=== PATIENT | male | born 1955 | race Caucasian/White ===

== ENCOUNTER → 2018-02-21 | Outpatient (CLI) | payer OTHER ==
[~2018-02-21] MED LIST: CARV25 PO; COLCHICINE0.6 MG PO; FURO40 PO; HYDR10 PO; HYDRA25 PO; HYDROCODON-ACE118 ML PO; INDO25 PO; Isosorbide Mono30 MG PO; K-Dur20 MEQ PO; LISI20 PO; METO50 PO; MULVITMIND PO; NAC600 MG PO; NYST237S MT; THEREMS H PO; THIA100 PO; Zofran8 MG PO
== END | disposition home or self-care (01) ==
LOC: PLD 07:21 → LAB SHORT 07:21
DX: C09.9 Malignant neoplasm of tonsil, unspecified (principal); C77.0 Secondary and unspecified malignant neoplasm of lymph nodes of head, face and neck; R59.0 Localized enlarged lymph nodes
CPT/HCPCS: 88173

== ENCOUNTER 2018-05-23 13:37 | Inpatient (IN) | payer OTHER ==
[~2018-05-23] VITALS: Ht 180.3 cm; Wt 83.9 kg
[2018-05-24] MEDS ORDERED: AMOX875 PO (13:51)
== END 2018-05-26 17:30 | disposition home or self-care (01) | DRG 824 ==
LOC: SURS 05-26 07:56 → PRE IP 05-26 09:30 → SURS 05-26 17:30
PROVIDERS: Otolaryngology
PROC: 07B10ZX Excision of Right Neck Lymphatic, Open Approach, Diagnostic (ICD-10-PCS; principal; 2018-05-26 09:30)
DX: C77.0 Secondary and unspecified malignant neoplasm of lymph nodes of head, face and neck (principal); I42.6 Alcoholic cardiomyopathy; C09.9 Malignant neoplasm of tonsil, unspecified; I10 Essential (primary) hypertension; F10.21 Alcohol dependence, in remission; Z92.21 Personal history of antineoplastic chemotherapy; Z93.1 Gastrostomy status; Z79.899 Other long term (current) drug therapy
CPT/HCPCS: 88305; J1100; J2250; J3010; J7120

== ENCOUNTER → 2018-09-14 | Outpatient (CLI) | payer OTHER ==
[~2018-09-14] MED LIST changes: +AMOX875 PO
== END | disposition home or self-care (01) ==
LOC: PLD 08:00 → LAB SHORT 08:00
DX: R59.0 Localized enlarged lymph nodes (principal)
CPT/HCPCS: 88173; 88305

== ENCOUNTER 2019-05-28 06:05 | Day surgery (SDC) | payer OTHER ==
[~2019-05-28] VITALS: Ht 177.8 cm; Wt 92.7 kg
[~2019-05-28 06:05] MED LIST changes: +ASPI81CH PO; +Prinivil10 MG PO; +ROSU5 PO
--- NOTE | 2019-05-28 06:35 | NUR ---
History, Chart, Medications and Allergies reviewed before start of procedure. Patient states colon prep results clear. Patient States Post-Procedure ride home has been arranged. Lungs clear T/O to Auscultation.
--- NOTE | 2019-05-28 08:04 | NUR ---
05/28/19 0804 Анна Lombardi MONITOR INTACT WITH CONTINUOUS PULSE OXIMETRY AND INTERMITTENT BP.
--- NOTE | 2019-05-28 09:01 | NUR ---
Discharge instructions reviewed with patient. Patient verbalizes understanding. Copy given to patient to take home. Discharged via wheelchair to private car for ride home.
== END 2019-05-28 22:58 | disposition home or self-care (01) ==
LOC: ORSCMMR 06:05 → ORD 08:00 → ORSCMMR 08:00
PROVIDERS: Internal Medicine Gastroenterology
PROC: 0DJD8ZZ Inspection of Lower Intestinal Tract, Via Natural or Artificial Opening Endoscopic (ICD-10-PCS; principal; 2019-05-28 08:00)
DX: Z12.11 Encounter for screening for malignant neoplasm of colon (principal); K57.30 Diverticulosis of large intestine without perforation or abscess without bleeding; I10 Essential (primary) hypertension; I25.2 Old myocardial infarction; I25.10 Atherosclerotic heart disease of native coronary artery without angina pectoris; Z79.899 Other long term (current) drug therapy; Z79.82 Long term (current) use of aspirin
CPT/HCPCS: J2704; J7120

== ENCOUNTER → 2020-12-19 | Outpatient (CLI) | payer OTHER ==
[2020-12-19 13:01] LABS: Bun/Creatinine Ratio 10.8 (12.0-20.0); Calcium, Blood 8.5 mg/dL (8.5-10.1); Creatinine, Blood 1.3 mg/dL (0.60-1.20); Potassium, Blood 4.4 mmol/L (3.5-5.5); Thyroid Stimulating Hormone 4.65 uIU/mL (0.360-4.800); Uric Acid, Blood 7.9 mg/dL (3.5-7.2)
== END ==
LOC: LAB FUT 09-07 10:25 → OLS 10:49 → LAB SHORT 10:49
PROVIDERS: Family Medicine
DX: E03.9 Hypothyroidism, unspecified (principal); M10.9 Gout, unspecified
CPT/HCPCS: 36415; 80048; 84443; 84550